=== PATIENT | female | born 1955 | race Caucasian/White ===

== ENCOUNTER 2020-10-21 11:58 | Outpatient (REF) | payer MEDICAID, SELFPAY | END 2020-10-21 11:59 | disposition home or self-care (01) | LOC: HO.LAB 11:58 | PROVIDERS: Visit Provider Internal Medicine | DX: Z20.822 Contact with and (suspected) exposure to COVID-19 (principal) | CPT/HCPCS: 36415; C9803; U0003 ==

== ENCOUNTER 2021-02-16 12:17 | Outpatient (REF) | payer MEDICAID, SELFPAY | END 2021-02-16 12:18 | disposition home or self-care (01) | LOC: HO.LAB 12:17 | PROVIDERS: Visit Provider Internal Medicine | DX: Z20.822 Contact with and (suspected) exposure to COVID-19 (principal) | CPT/HCPCS: C9803; U0003; U0005 ==

== ENCOUNTER → 2022-01-23 20:41 | Outpatient (REF) | payer MEDICARE, MEDICAID, SELFPAY | LOC: HO.SL 20:41 | PROVIDERS: Visit Provider Internal Medicine | DX: G47.33 Obstructive sleep apnea (adult) (pediatric) (principal) | CPT/HCPCS: 95810 ==

== ENCOUNTER 2022-04-06 13:20 | Outpatient (REF) | payer MEDICARE, MEDICAID, SELFPAY ==
--- NOTE | ~2022-04-06 | MM_ITS ---
EXAMINATION: BONE DENSITOMETRY CLINICAL INDICATION: Osteoporosis. COMPARISON: Baseline BD dated 10/02/2019. TECHNIQUE: Using a [employer] DXA System (software version: 13.1) manufactured by [employer], dual-energy x-ray absorptiometry was performed of the lumbar spine and left hip. The images are of good technical quality. Summary results are attached. FINDINGS: AP SPINE L1-L4: Current: BMD 1.056 g/cm2, Z-score -0.5, T-score -1.0, normal, 8.8% decrease from baseline (<5% change is not significant). Baseline: BMD 0.971 g/cm2. LEFT FEMUR, NECK: Current: BMD 0.708 g/cm2, Z-score -1.6, T-score -2.4, osteopenia. Baseline: BMD 0.679 g/cm2. LEFT FEMUR, TOTAL: Current: BMD 0.809 g/cm2, Z-score -1.1, T-score -1.6, osteopenia, 2.4% decrease from baseline (<5% change is not significant). Baseline: BMD 0.829 g/cm2. IDENTIFIED RISK FACTORS: Menopause, low calcium intake, osteoporosis, history of fracture (adult), rheumatoid arthritis. HISTORY OF FRACTURE: Humerus, spine. MEDICATIONS: Calcium, vitamin D. MM/XR DEXA axial skeleton IMPRESSION: 1. DIAGNOSIS: Osteopenia based on the lowest T-score value of -2.4 in the femoral neck applying World Health Organization criteria. 2. 10-YEAR FRACTURE RISK PREDICTION, FRAX: Major osteoporotic fracture (clinical spine, forearm, hip or shoulder) 13.5%. Hip fracture 2.7%. 3. Treatment Recommendations: NOF guidelines recommend consideration for treatment in postmenopausal women and men age 50 and older presenting with the following: -A hip or vertebral (clinical or morphometric) fracture. -T-score less than or equal to -2.5 at the femoral neck or spine after appropriate evaluation to exclude secondary causes. -Low bone mass at the hip or spine and a 10-year fracture probability by FRAX of greater than or equal to 3% for hip fracture or greater than or equal to 20% for major osteoporotic fracture based on the [place] adapted WHO algorithm. 4. Other Recommendations: All treatment decisions require clinical judgment and consideration of individual patient factors, including patient preferences, comorbidities, previous drug use, risk factors not captured in the FRAX model (e.g. frailty, falls, vitamin D deficiency, increased bone turnover, interval significant decline in bone density) and possible under or overestimation of fracture risk by FRAX. Additional medical evaluation for secondary cause of low bone mineral density may be appropriate. FUTURE SCAN RECOMMENDATION: People with diagnosed cases of osteoporosis or at high risk for fracture should have regular bone mineral density tests. For patients eligible for Medicare, routine testing is allowed once every 2 years. The testing frequency can be increased to one year for patients who have rapidly progressing disease, those who are receiving or discontinuing medical therapy to restore bone mass, or have additional risk factors.
== END 2022-04-06 13:21 | disposition home or self-care (01) ==
LOC: HO.MAMMO 13:20
PROVIDERS: Visit Provider Internal Medicine
DX: Z13.820 Encounter for screening for osteoporosis (principal); Z78.0 Asymptomatic menopausal state; M81.0 Age-related osteoporosis without current pathological fracture
CPT/HCPCS: 77080

== ENCOUNTER → 2022-10-02 12:55 | Outpatient (BNVA) | payer MEDICARE, MEDICAID, SELFPAY | PROVIDERS: PCP Internal Medicine; Visit Provider Surgery | DX: Z12.11 Encounter for screening for malignant neoplasm of colon (principal) | CPT/HCPCS: 99202 ==

== ENCOUNTER 2022-11-10 06:50 | Day surgery (SDC) | payer MEDICARE, MEDICAID, SELFPAY ==
[2022-11-06 16:47] VITALS: BMI 40.1
[2022-11-10 07:15] VITALS: BP 151/86; PULSE 84; RESP 16; TEMP 36.3; O2SAT 97; BMI 39.9
--- NOTE | 2022-11-10 08:25 | MHC.SHP ---
Pre-Procedural Eval Section A Date of Service: 11/10/22 Section B Chief Complaint: Encounter for screening for malignant neoplasm of Details of Present Illness: for screening colonoscopy Relevant Social History: None Present Medications: None Allergies: Allergies Allergy/AdvReac Type Severity Reaction Status Date / Time ibuprofen Allergy Unknown Rash Verified 11/10/22 07:30 naproxen Allergy Unknown Rash Verified 11/10/22 07:30 penicillin G [Penicillin G] Allergy Unknown ITCHY,SWELL Verified 11/10/22 07:30 ING penicillin V Allergy Unknown Anaphylaxis Verified 11/10/22 07:30 Review of Systems Sugical H&P ROS: Negative: Constitution, Cardiovascular, Respiratory, Neurological, Psychiatric, Hem-Onc, Allergic/Immunologic, Gastrointestinal, Genitourinary, Musculoskeletal, Integumentary, Endocrine and Eyes/Ears/Nose/Throat Exam Surgical H&P Exam: Normal: HEENT, Normal: Heart, Normal: Lungs, Normal: Extremities, Normal: Abdomen, Normal: Skin and Normal: Neurological Plan Diagnosis/Plan: Unchanged I have reviewed the history and physical and performed a pertinent physical examination on my patient. No changes have occurred unless specified. Time Spent With Patient Time: Total time managing care of this patient today ____ minutes.
--- NOTE | 2022-11-10 08:29 | HO.ANESPROP2 ---
HPI - Anesthesia Eval Consult details Narrative: colon cancer screen PMFSH Active Problems Active Problems: All Active Problems (Updated 10/02/22 @ 13:21 by Alban Greene MD) Morbid obesity (Acute) Arthritis (Acute) Fibromyalgia (Acute) Colon cancer screening (Acute) Past Medical History Medical History (Updated 10/02/22 @ 13:21 by Alban Greene MD) Arthritis Colon cancer screening Fibromyalgia Morbid obesity Family History Family History Mother Arthritis Family history of problems with anesthesia: No Surgical History History of Problems with Anesthesia: No Social History Social History Alcohol intake: never Patient Tobacco Use Status: Never used Tobacco Use of substances other than those prescribed or required for medical reasons: No Advance Directives: No Advance Directives Information Provided: Yes Recently lost weight without trying: No Meds Allergies Allergy/AdvReac Type Severity Reaction Status Date / Time ibuprofen Allergy Unknown Rash Verified 11/10/22 07:30 naproxen Allergy Unknown Rash Verified 11/10/22 07:30 penicillin G [Penicillin G] Allergy Unknown ITCHY,SWELL Verified 11/10/22 07:30 ING penicillin V Allergy Unknown Anaphylaxis Verified 11/10/22 07:30 Home Medications Medication Instructions Recorded Confirmed Last Taken Type alendronate 70 mg tablet 70 mg PO QWEEK 10/02/22 10/02/22 Unknown History atorvastatin 40 mg tablet 40 mg PO BEDTIME 10/02/22 10/02/22 Unknown History brimonidine 0.2 % eye drops 1 drp ophthalmic-Right TID 10/02/22 10/02/22 Unknown History calcium carbonate 500 mg-vitamin 1 tab PO BID 10/02/22 10/02/22 Unknown History D3 5 mcg (200 unit) tablet (Oyster Shell Calcium-Vitamin D3) cetirizine 10 mg tablet 10 mg PO DAILY 10/02/22 10/02/22 Unknown History estradiol 0.01% (0.1 mg/gram) 1 g vaginal 2XW 10/02/22 10/02/22 Unknown History vaginal cream fluticasone propionate 50 1 - 2 spray intranasal DAILY PRN 10/02/22 10/02/22 Unknown History mcg/actuation nasal spray,suspension gabapentin 300 mg capsule mg PO 10/02/22 10/02/22 Unknown History hydrochlorothiazide 25 mg tablet 25 mg PO DAILY 10/02/22 10/02/22 Unknown History lisinopril 30 mg tablet 30 mg PO DAILY 10/02/22 10/02/22 Unknown History venlafaxine 150 mg 150 mg PO DAILY 10/02/22 10/02/22 Unknown History capsule,extended release 24 hr Exam Exam Date and Time: November 10, 2022 0829 Height,Weight and Vital Signs: Height 5 ft 2 in Weight 98.883 kg Last Vital Signs Temp 97.3 F 11/10/22 07:15 Pulse 84 11/10/22 07:15 Resp 16 11/10/22 07:15 BP 151/86 H 11/10/22 07:15 Pulse Ox 97 11/10/22 07:15 O2 Del Method 11/10/22 07:15 Airway Mallampati Class: II TM Dist: >3cm Neck ROM: Full Heart: rrr Lungs: cta Assessment and Plan Assessment Anesthesia Assessment: Anesthesia Plan Discussed and Chart Reviewed Final Anesthetic Review Family History of Problems with Anesthesia: No History of Problems with Anesthesia: No NPO: Yes ASA Class: III Final Preanesthetic Review: No Changes in Pt Med Stat, Meds/Allgs Chart Reviewed, Consent Obtained/Reviewed and Anes Risks/Benef Reviewed Patient Risk: Intermediate Procedure Risk: Low Anesthetic Plan Anesthetic Plan: MAC: Disposition: Standard PACU
--- NOTE | 2022-11-10 09:25 | W.PM.OPN ---
Operative Note Operative Note Date of Service: 11/10/22 Narrative: Preop diagnosis: Colon cancer screening Postop diagnose: 1. Small polyps x2, about 2 to 3 mm, level 10 cm 2. small polyp about 2 mm, level 5 cm Procedure: Colonoscopy using cold forceps x3 Surgeon: Alban Greene MD The patient is a 67 year female here for screening colonoscopy. She understood the technique of this procedure as well as the risks, benefits, and alternatives. The patient was brought to the operating room and placed in left lateral decubitus position under monitored anesthesia care. A surgical time-out was done. A full digital rectal exam was done and this did not reveal any significant anal lesions. The tip of the Olympus colonoscope was gently introduced through the anal orifice advanced with insufflation all the way to the cecum. The cecum was intubated. The cecum was identified by visualization of the ileocecal valve as well as the appendiceal orifice. The cecal mucosa was unremarkable. The scope was gradually withdrawn with careful examination of the entire colonic mucosa being done with scope withdrawal. The patient had adequate bowel prep so it was unlikely that any lesion may have been missed. The rectum was reached. There was note of 2 small polyps about 2 mm each adjacent to each other at about level 10 cm. This were both removed using multiple bites of the cold forceps and placed in the same specimen jar. Another small polyp, about 2-3 mm was seen at level 5 cm and was removed as well with forceps. The anal canal was unremarkable. The scope was then withdrawn completely with desufflation The patient tolerated procedure well. There were no immediate complications. Depending on the path report, may recommend follow-up colonoscopy in the next 5 years.
[2022-11-10 09:35] VITALS: BP 125/62; PULSE 70; RESP 17; TEMP 36.2; O2SAT 98
[2022-11-10 09:50] VITALS: BP 145/75; PULSE 76; RESP 18; TEMP 36.2; O2SAT 98
== END 2022-11-10 10:10 | disposition home or self-care (01) ==
PROVIDERS: PCP Internal Medicine; Visit Provider Surgery
PROC: 0DJD8ZZ Inspection of Lower Intestinal Tract, Via Natural or Artificial Opening Endoscopic (ICD-10-PCS; CPT 45378; principal; 2022-11-10 09:00)
DX: Z12.11 Encounter for screening for malignant neoplasm of colon (principal); K62.1 Rectal polyp; M79.7 Fibromyalgia; G47.33 Obstructive sleep apnea (adult) (pediatric); E66.01 Morbid (severe) obesity due to excess calories; Z68.41 Body mass index [BMI] 40.0-44.9, adult; Z79.51 Long term (current) use of inhaled steroids; Z79.899 Other long term (current) drug therapy; Z88.0 Allergy status to penicillin; Z88.8 Allergy status to other drugs, medicaments and biological substances
CPT/HCPCS: 45380; 88305; J0171; Q9968

== ENCOUNTER → 2022-11-23 11:50 | Outpatient (BNVA) | payer MEDICARE, MEDICAID, SELFPAY | PROVIDERS: PCP Internal Medicine; Referring Provider Internal Medicine; Visit Provider Surgery | DX: K63.5 Polyp of colon (principal) | CPT/HCPCS: 99212 ==

== ENCOUNTER → 2023-03-20 11:10 | Outpatient (BNVA) | payer OTHER, MEDICAID, SELFPAY | PROVIDERS: PCP Internal Medicine; Visit Provider Internal Medicine Rheumatology | DX: M54.50 Low back pain, unspecified (principal); M25.551 Pain in right hip; M25.552 Pain in left hip; M25.512 Pain in left shoulder; M79.7 Fibromyalgia; M75.82 Other shoulder lesions, left shoulder | CPT/HCPCS: 99202 ==

== ENCOUNTER 2023-04-03 11:07 | Outpatient (REF) | payer OTHER, MEDICAID, SELFPAY ==
--- NOTE | ~2023-04-03 | XR_ITS ---
EXAMINATION: XR SHOULDER, LEFT CLINICAL INFORMATION: Pain in left shoulder COMPARISON: None available. TECHNIQUE: AP external rotation, Grashey, scapular Y, and axillary views of the left shoulder. FINDINGS: No displaced fracture. There are mild to moderate degenerative changes in the glenohumeral joint and acromioclavicular joints with joint space narrowing and bony spurring present question of subtle calcification overlying the greater tuberosity. XR/XR shoulder LT min 2V IMPRESSION: 1. Mild to moderate degenerative changes in the glenohumeral and acromioclavicular joints. 2. Question of subtle calcification overlying the greater tuberosity which could represent calcific tendinosis.
--- NOTE | ~2023-04-03 | XR_ITS ---
EXAMINATION: XR LUMBOSACRAL SPINE CLINICAL INFORMATION: Low back pain COMPARISON: 11/07/2016 TECHNIQUE: Three views of the lumbosacral spine. FINDINGS: No evidence for acute compression deformity. Moderate to severe degenerative disc disease at L5-S1. There is grade 1 anterolisthesis of L4 on L5 with moderate degenerative disc disease at this level. Moderate facet arthropathy in the lower lumbar spine. The sacroiliac joints are intact. Atherosclerotic calcification in the abdominal aorta. Calcified granulomas project over the gluteal regions. XR/XR lumbar spine 2-3V IMPRESSION: 1. Moderate to severe degenerative disc disease at L5-S1. 2. Grade 1 anterolisthesis of L4 on L5 with moderate degenerative disc disease at this level.
== END 2023-04-03 11:08 | disposition home or self-care (01) ==
LOC: HO.XRAY 11:07
PROVIDERS: PCP Internal Medicine; Visit Provider Internal Medicine Rheumatology
DX: M54.50 Low back pain, unspecified (principal); M25.552 Pain in left hip; M25.551 Pain in right hip; M25.512 Pain in left shoulder
CPT/HCPCS: 72100; 73030

== ENCOUNTER 2023-11-08 12:10 | Outpatient (REF) | payer OTHER, MEDICAID, SELFPAY ==
[2023-11-08 13:10] LABS: MANUAL DIFF FLAG NO
[2023-11-08 13:29] LABS: Basophils Percent Auto 0.3 % (0-2); Eosinophils Absolute Auto 0.2 X10*3/uL (0.0-0.4); Eosinophils Percent Auto 2.1 % (0-4); Estimated Average Glucose 111 mg/dL; Hematocrit 37.2 % (37.0-47.0); Hemoglobin 12.7 g/dl (12.0-16.0); Hemoglobin A1c % 5.5 % (<6.0); Imm Gran Abs Auto 0.03 X10*3/uL (0.00-0.03); Imm Gran Pct Auto 0.3 % (0.0-0.4); Lymphocytes Absolute Auto 3.5 X10*3/uL (1.2-4.9); Lymphocytes Percent Auto 34.4 % (20-40); Mean Corpuscular HGB Conc 34.1 g/dl (31.0-35.0); Mean Corpuscular Hemoglobin 30.6 pg (27.0-33.0); Mean Corpuscular Volume 89.6 fL (80.0-98.0); Mean Platelet Volume 9.5 fL (9.4-12.3); Neutrophils Absolute Auto 5.4 x10*3/uL (2.0-8.3); Neutrophils Percent Auto 52.9 % (45-73); Platelet Count 455 X10*3/uL (160-400); Red Blood Count 4.15 X10*6/uL (4.20-5.50); Red Cell Distribution Width 13.2 % (11.0-16.0); White Blood Count 10.2 X10*3/uL (4.8-10.8)
[2023-11-08 13:46] LABS: Alanine Aminotransferase 12 U/L (0-31); Alkaline Phosphatase 66 U/L (39-117); Anion Gap 11 (12-20); Aspartate Amino Transferase 15 U/L (5-31); Bilirubin Total 0.4 mg/dL (0.0-1.0); Blood Urea Nitrogen 14 mg/dL (9-16); Carbon Dioxide 31 mmol/L (22-29); Chloride 102 mmol/L (96-108); Estimated Glomerular Filt Rate > 60; Glucose Random 95 mg/dL (60-115); Potassium 3.8 mmol/L (3.3-5.1); Sodium 140 mmol/L (135-145); Total Protein 7.6 g/dL (6.5-8.0)
[2023-11-08 14:08] LABS: TSH reflex Free T4 0.98 uIU/mL (0.32-4.0)
[2023-11-09 10:36] LABS: Iron 102 mcg/dL (30-160); Percent Iron Saturation 44 % (15-50); Total Iron Binding Capacity 232 mcg/dL (228-428); Unsaturated Iron Binding 130 ug/dL
[2023-11-09 11:25] LABS: Ferritin 182 ng/mL (10-250)
== END 2023-11-08 12:11 | disposition home or self-care (01) ==
LOC: HO.HHCL 12:10
PROVIDERS: Visit Provider Student in an Organized Health Care Education/Training Program
DX: Z00.00 Encounter for general adult medical examination without abnormal findings (principal); R53.1 Weakness
CPT/HCPCS: 36415; 80053; 82728; 83036; 83540; 84443; 85025

== ENCOUNTER 2024-03-03 10:14 | Outpatient (REF) | payer OTHER, MEDICAID, SELFPAY ==
[2024-03-03 12:25] LABS: Alanine Aminotransferase 13 U/L (0-31); Albumin Level 4.1 g/dL (3.5-5.0); Alkaline Phosphatase 55 U/L (39-117); Anion Gap 18 (12-20); Aspartate Amino Transferase 19 U/L (5-31); Bilirubin Total 0.3 mg/dL (0.0-1.0); Blood Urea Nitrogen 14 mg/dL (9-16); Carbon Dioxide 27 mmol/L (22-29); Chloride 99 mmol/L (96-108); Cholesterol 281 mg/dL (<200); Estimated Glomerular Filt Rate > 60; Glucose Random 106 mg/dL (60-115); HDL Cholesterol 51 mg/dL (>40); LDL Cholesterol Calculated 180 mg/dL (<100); Sodium 140 mmol/L (135-145); Total Protein 7.5 g/dL (6.5-8.0); Triglycerides 252 mg/dL (<150)
[2024-03-03 12:27] LABS: Vitamin D 25-OH Total 29.9 ng/mL (>30)
[2024-03-03 13:48] LABS: Reflex LDLD? No
== END 2024-03-03 10:15 | disposition home or self-care (01) ==
LOC: HO.HHCL 10:14
PROVIDERS: Visit Provider Internal Medicine
DX: I10 Essential (primary) hypertension (principal); M54.50 Low back pain, unspecified; G89.29 Other chronic pain; F33.9 Major depressive disorder, recurrent, unspecified
CPT/HCPCS: 36415; 80053; 80061; 82306; 84443

== ENCOUNTER → 2024-12-09 11:30 | Outpatient (BNV) | payer OTHER, SELFPAY | PROVIDERS: PCP Internal Medicine; Visit Provider Radiology Diagnostic Radiology | DX: E28.39 Other primary ovarian failure (principal) | CPT/HCPCS: 77080 ==

== ENCOUNTER 2024-12-09 11:32 | Outpatient (REF) | payer OTHER, SELFPAY ==
--- NOTE | ~2024-12-09 | MM_ITS ---
EXAMINATION: DXA BONE DENSITY AXIAL HISTORY: Estrogen deficiency TECHNIQUE: AtheroNova Dual energy absorptiometry (DEXA) of the lumbar spine, total left hip, and femoral neck was performed. COMPARISON: Comparison is made with the prior examination dated 04/06/2022. FINDINGS: The bone mineral density of the lumbar spine is 1.070 with a T-score of -0.9, and a Z-score of -0.4. This represents a BMD change of 1.3% compared to the prior exam. This is not statistically significant. The bone mineral density of the left total hip is 0.901 with a T-score of -0.8, and a Z-score of -0.3. This represents a BMD change of 11.4% compared to the prior exam. This is statistically significant. The bone mineral density of the left femoral neck is 0.835 with a T-score of -1.5, and a Z-score of -0.6. This represents a BMD change of 17.9% compared to the prior exam. FRACTURE RISK: The FRAX index suggests a ten year probability of major osteoporotic fracture of 10.0%, and of hip fracture 1.2%. MM/XR DEXA axial skeleton IMPRESSION: Based on bone mineral density, and according to World Health Organization (WHO) criteria, the diagnosis is consistent with osteopenia. All bone density values are in grams per centimeter squared (g/cm2). Statistically, 68% of repeat scans fall within 1 SD (+/- 0.010 g/cm2 for AP spine L1-L4) and 1 SD (+/- 0.012 g/cm2 for femur total) FRAX is a trademark of the [employer] [place] for Metabolic Bone Disease, a World Health Organization (WHO) Collaborating Center. Electronically signed by: Omari Barrow MD 12/09/2024 01:08 PM EDT
--- OUTSIDE RECORDS SUMMARY | 2024-12-09 14:05 | XMS_ITS | Encounter Summary ---
Author Organization [employer] Address [address] [place] [address] Care Team Providers Care Windows Software Developer Name Role Phone Gail Garcia MD Primary Care Provider + Reason for Visit * Reason Comments Med Refill Encounter Details Date Type Department Care Team ([facility] st Contact Info) Description 05/22/2024 Refill [facility] [address] [place], [place] [phone] Name, MD Ramirez [address] [place] [address] Age related osteoporosis, unspecified pathological fracture presence Social History Tobacco Use Types Packs/Day Years Used Date Smoking Tobacco: Former Cigarettes Passive Smoke Exposure: Past Smokeless Tobacco: Never Alcohol Use Standard Drinks/Week Comments Never 0 (1 standard drink = 0.6 oz pur e alcohol) Depression Answer Date Recorded Patient Health Questionnaire-9 Score 9 12/17/2023 Patient Health Questionnaire-9 Score 9 12/17/2023 Last PHQ-9: Questionnaire Data Not on file 0 12/17/2023 Housing Stability Answer Date Recorded What is your housing situation today? I have chato carter 02/27/[address] you li ve. Do you have problems with any of the following? None of the above 02/27/2024 Food Insecurity Answer Date Recorded Within the past 12 months, y ou worried that your food would run out before you got money to buy more: Never True 02/27/2024 Within the past 12 months,th e food you bought just didn't last and you didn't have enough money to get more: Never True 01/2024 Transportation Answer Date Recorded In the past 12 months, has l ack of transportation kept you from medical appts, meetings, work or from getting things needed for daily living? No 02/27/2024 Utilities Answer Date Recorded In the past 12 months, has t he electric, gas, oil or water company threatened to shut off services in your home? No 02/27/2024 Depression Answer Date Recorded Patient Health Questionnaire-2 Score 0 12/17/2023 Comments No Sex and Gender Information Value Date Recorded Sex Assigned at Female 07/24/2022 10:17 AM EDT Legal Sex Female 10:17 AM EDT Gender Identity Female 07/24/2022 10:17 AM EDT Sexual Orientation Choose not to disclose 2021 10:17 AM EDT documented as of this encounter Plan of Treatment Upcoming Encounters Date Type Department Care Team (Late st Contact Info) Description 12/26/2024 11:30 AM EDT Office Visit [facility] [address] [place] [address] Gail Garcia MD [address] [place] [address] 03/04/2025 11:00 AM EDT Office Visit [facility] [address] [place], [place] [phone] Marquez, Sara, OD [address] [place] [address] documented as of this encounter Visit Diagnoses Diagnosis Age related osteoporosis, unspecified pathological fracture presence documented in this encounter Additional Health Concerns Assessment Noted Time PHQ-9 Depression Total Score: 9 12/17/19 24 11:13 AM EDT documented as of this encounter Care Teams Windows Software Developer Relationship Specialty Start Date End Date Gail Garcia MD [address] [place] [address] PCP - General Family Medicine 11/03/16 documented as of this encounter
--- OUTSIDE RECORDS SUMMARY | 2024-12-09 14:05 | XMS_ITS | Encounter Summary ---
Author Organization [employer] Address [address] [place] [address] Care Team Providers Care Mop Man Name Role Phone Gail Garcia MD Primary Care Provider + Reason for Visit * Reason Comments Med Refill Encounter Details Date Type Department Care Team ([facility] st Contact Info) Description 04/15/2024 Refill [facility] [address] [place], [place] [phone] Gail Garcia MD [address] [place], [place] [phone] Chronic rhinitis Social History Tobacco Use Types Packs/Day Years [...] Description 12/26/2024 11:30 AM EDT Office Visit [facility] [address] [place] [address] Gail Garcia MD [address] [place] [address] 03/04/2025 11:00 AM EDT Office Visit [facility] [address] [place] [address] Marquez, Sara, OD [address] [place] [address] documented as of this encounter Visit Diagnoses Diagnosis Chronic rhinitis documented in this encounter Additional Health Concerns Assessment Noted Time PHQ-9 Depression Total Score: 9 12/17/19 24 11:13 AM EDT documented as of this encounter Care Teams Mop Man Relationship Specialty Start Date End Date Gail Garcia MD [address] [place] [address] PCP - General Family Medicine 11/03/16 documented as of this encounter
--- OUTSIDE RECORDS SUMMARY | 2024-12-09 14:05 | XMS_ITS | Encounter Summary ---
Author Organization [employer] Address [address] [place] [address] Care Team Providers Care Crop Farmers Name Role Phone Gail Garcia MD Primary Care Provider + Encounter Details Date Type Department Care Team (Late st Contact Info) Description 11/02/2022 Orders Only [facility] [address] [place] [address] Alexa Cazares LPN Social History Tobacco Use Types Packs/Day Years Used Date Smoking Tobacco: Never Assessed Comments Unknown Sex and Gender Information Value Date Recorded [...] Description 12/26/2024 11:30 AM EDT Office Visit [facility] [address] [place] [address] Gail Garcia MD [address] [place] [address] 03/04/2025 11:00 AM EDT Office Visit [facility] [address] [place], [place] [phone] Sara Zayas, OD [address] [place] [address] documented as of this encounter Visit Diagnoses Not on filedocumented in this encounter Care Teams Crop Farmers Relationship Specialty Start Date End Date Gail Garcia MD [address] [place] [phone] PCP - General Family Medicine 11/03/16 documented as of this encounter
--- OUTSIDE RECORDS SUMMARY | 2024-12-09 14:05 | XMS_ITS | Data Portability ---
Author Organization [employer] Address [address] [place] [id number] Assessment No assessment recorded. Plan of Treatment Reminders Order Date Submit Date Provider Last Modified By Organization Details Last Modified Time Details Appointments None record ed. Lab None record ed. Referral None record ed. Procedures None record ed. Surgeries None record ed. Imaging None record ed. Medication Orders None record ed. Patient TargetsNo targets recorded. Patient InstructionsNo instructions recorded. Reason for Referral None Reported. Medical Equipment None Reported. Allergies Allergen ID Allergen Name Allergen Category Reaction Reaction Severity Criticality Documentation Date Start Date Code Code System Note Provider Name and Address Organization Details Recorded Time 53786 aspirin medicatio n Not available Not available Not available 09/18/2024 1191 RxNorm Not Available [facility] - production 14:05:30 56459 Product containin g penicilli n (product) medicatio n Not available Not available Not available 09/18/2024 94840 8001 SNOMED Not Available [facility] - production 14:05:30 Medications Name Sig Start Date Stop Date Status Note LastModified by Organization Details LastModified Time cyclobenzapr ine 10 mg tablet TOME 1 TABLETA POR V A ORAL TODOS LOS D AL ACOSTARSE active Not Available Not Available No t Available atorvastatin 40 mg tablet TOME MONA TABLETA TODOS LOS D AL ACOSTARSE active Not Available Not Available No t Available cetirizine 10 mg tablet TOME MONA TABLETA TODOS LOS D active Not Available Not Available No t Available alendronate 70 mg tablet TAKE 1 TABLET BY ORAL ROUTE EVERY WEEK IN THE MORNING 30 MIN BEFORE FOOD OR DRINK active Not Available Not Available No t Available clindamycin HCl 150 mg capsule TAKE 1 CAPSULE BY MOUTH 4 TIMES DAILY FOR 10 DAYS active Not Available Not Available Not Available venlafaxine ER 150 mg capsule,exte nded release 24 hr TOME 1 C PSULA POR V A ORAL TODOS LOS D EN LA MA SHARI DO NOT CRUSH OR CHEW active Not Available Not Available No t Available tramadol 50 mg tablet TOME 1 TABLETA POR V A ORAL CADA 8 HORAS CU[place]O SEA NECESARIO FOR SEVERE PAIN FOR UP TO 5 DAYS active Not Available Not Available No t Available acetaminophe n 500 mg tablet TOME 1 TABLETA POR V A ORAL CADA 6 HORAS CU[place]O SEA NECESARIO PARA EL DOLOR active Not Available Not Available No t Available pravastatin 80 mg tablet TOME 1 TABLETA POR V A ORAL TODOS LOS D active Not Available Not Available No t Available doxycycline monohydrate 50 mg tablet PLEASE SEE ATTACHED FOR DETAILED DIRECTIONS active Not Available Not Available N ot Available betamethason e valerate 0.1 % topical cream APPLY A THIN LAYER TOPICALLY TO THE AFFECTED AREA(S) DAILY active Not Available Not Available No t Available lisinopril 30 mg tablet TOME 1 TABLETA POR V A ORAL TODOS LOS D active Not Available Not Available No t Available gabapentin 300 mg capsule TOME 2 C PSULAS POR V A ORAL TODOS LOS D active Not Available Not Available No t Available hydrochlorot hiazide 25 mg tablet TOME 1 TABLETA POR V A ORAL TODOS LOS D active Not Available Not Available No t Available ergocalcifer ol (vitamin D2) 1,250 mcg (50,000 unit) capsule TOME 1 C PSULA POR V A ORAL ONE TIME PER WEEK active Not Available Not Available No t Available Oyster Shell Calcium-Tonie min D3 500 mg-5 mcg (200 unit) tablet TOME 1 TABLETA POR V A ORAL DOS VECES AL D A active Not Available Not Available No t Available chlorhexidin e gluconate 0.12 % mouthwash PLEASE SEE ATTACHED FOR DETAILED DIRECTIONS active Not Available Not Available N ot Available diclofenac 1 % topical gel APPLY 2 GRAMS TOPICALLY THREE TIMES A DAY TO THE AFFECTED AREA(S) active Not Available Not Available No t Available Vitals Date Recorded Body weight Heart rate Respiratory rate Oxygen saturation Oxygen saturation in Arterial blood by Pulse oximetry Body temperature Systolic blood pressure Diastolic blood pressure Provider Name and Address Organization Details Last Updated DateTime 4 27871.4 g 94 /min 16 /min 96 % 96 % 98.2 [degF] 152 mm[Hg] 80 mm[Hg] Not Available [facility] - production 10:17:22 Social History None recorded. Functional Status None recorded. Mental Status None recorded. Family History Nothing Reported. Medical History No medical history recorded. Gynecological HistoryNo gynecological history recorded. Obstetrics History GPAL:G 0 P 0 0 0 0 Past Encounters Encounter ID Performer Location Encounter Start Date Encounter Closed Date Diagnosis/Indication Diagnosis SNOMED-CT Code Diagnosis ICD10 Code Diagnosis Note [id number] Izzy Garcia MD [facility] - [facility] [address] [place] [phone] 09/19/2024 10:17:19 09/19/2024 12:38:58 Upper respiratory infection 22605723 J06.9 Evaluation in the field was performed by my management information systems director colleague, as noted above, I provided real-time direction and supervisio n for this visit. 69yo F endorsing 2 week of nasal congestion , cough. Denies fevers, myalgias, malaise, chest pain, other new symptoms. On management information systems director eval VS wnl (afebrile) , lungs CTA b/l. Suspect recurrent viral URI, defer COVID and flu testing given lack of fever or systemic sx. Recommend OTC mgmt, PCP f/up prn. PCP: no need for follow up We discussed the diagnostic uncertaint y of home visits and the risk associated with this. In this case, the patient and I felt this to be an acceptable and reasonable amount of risk given the benefit of avoiding an ED visit. We discussed the need to seek care urgently/e mergently in the setting of any new or worsening serious symptoms, shortness of breath, cough, chest pain, fever. Health Concerns Section Related Observation LastModified by Organization Detai ls LastModified Time None Recorded Concern Status LastModified by Organization Details LastModified Time None Recorded Advance Directives Directive None Recorded Payers Encounter Date Sequence Insurance Name Policy Number Policy Eastman Covered Member ID Eastman Member ID Guarantor Name 09/19/2024 1 [facility] - DOS ON OR AFTER 2022 - DUAL ELIGIBLE - [employer]DC OPTIONS AND ONE CARE (MEDICARE REPLACEMENT/ADV ANTAGE - HMO) Judie Aguiar [id number] Judie Aguiar Notes Date Note Type Note Provider Name and Address Organization Details Recorded Time 09/19/2024 text/html HPI: Cough and congestion x 1 week no noted improvement. .................. .................. .................. .................. .................. .................. .................. ............... [facility] Nurse Triage Notes (Ruth Tubbs - RN): Chief Complaints: Common cold symptoms, Cough PMH: Hypertension, Fibromyalgia Comments: Other Allergies: NSAIDSHPI reviewed- NE .................. .................. .................. .................. .................. .................. .................. ............... 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 Pt sts she has had the cough for 2-3 weeks. Pt denies NC, Sore throat, runny nose, fever, NVD, headaches dizziness,SOB, CP or abdominal pain. Pt taking OTC cough syrup with relief. Baseline vitals assessed, WNL, Lungs clear bilaterally, Afebrile, good skin color and turgor. [facility] contacted and advised pt to continue with self care and OTC meds for cough. Pt advised if symptoms persist to contact PCP for X-rays. Pt education on signs indicating the ER. .................. .................. .................. .................. .................. .................. .................. ............... [facility] Consulted: Izzy Garcia .................. .................. .................. .................. .................. .................. .................. ............... Disposition: Fulfilled Izzy Garcia MD [address] [facility] [facility], [place], [phone], [id number] - SUKH WARD 09/19/2024 10:53:07 OBGyn Episode No OBEpisode recorded.
--- OUTSIDE RECORDS SUMMARY | 2024-12-09 14:05 | XMS_ITS | Encounter Summary ---
Author Organization [employer] Address [address] [facility] 7t [place] [address] Care Team Providers Care Marketing Information Manager Name Role Phone Gail Garcia MD Primary Care Provider + Reason for Visit * Reason Comments Med Refill Encounter Details Date Type Department Care Team (Late st Contact Info) Description 06/01/2023 Refill [facility] [address] [place] [address] [phone] Gail aGrcia MD [address] [place], [place] [phone] Major depression, recurrent, chronic (CMS/HCC) Social History Tobacco Use Types Packs/Day Years Used Date Smoking Tobacco: Former Cigarettes Passive Smoke Exposure: Past Smokeless Tobacco: Never Alcohol Use Standard Drinks/Week Comments Never 0 (1 standard drink = 0.6 oz pur e alcohol) PHQ-2 Answer Date Recorded Patient Health Questionnaire-2 Score 0 03/08/2023 Comments Unknown Sex and Gender Information Value [...] Description 12/26/2024 11:30 AM EDT Office Visit [facility] [address] [place] [address] [phone] Gail Garcia MD [address] [place], [place] [phone] 03/04/2025 11:00 AM EDT Office Visit [facility] [address] [place], [place] [phone] Sara Zayas, OD [address] [place] [address] documented as of this encounter Visit Diagnoses Diagnosis Major depression, recurrent, chronic (CMS/HCC) documented in this encounter Care Teams Marketing Information Manager Relationship Specialty Start Date End Date Gail Garcia MD [address] [place] [address] PCP - General Family Medicine 11/03/16 documented as of this encounter
--- OUTSIDE RECORDS SUMMARY | 2024-12-09 14:05 | XMS_ITS | Encounter Summary ---
Author Organization [employer] Address [address] [facility] 7t [place] [address] Care Team Providers Care Alley Worker Name Role Phone Gail Garcia MD Primary Care Provider + Reason for Visit * Reason Comments Med Refill Encounter Details Date Type Department Care Team (Late st Contact Info) Description 05/22/2023 Refill [facility] MED[facility] [address] [place] [address] [phone] Gail Garcia MD [address] [place], [place] [phone] Mixed hyperlipidemia; HTN (hypertension), benign Social History Tobacco Use Types Packs/Day Years [...] Description 12/26/2024 11:30 AM EDT Office Visit [facility] MEDICINE [address] [place] [address] [phone] Gail Garcia MD [address] [place], [place] [phone] 03/04/2025 11:00 AM EDT Office Visit [facility] OPTOMETRY [address] [place], [place] [phone] Sara Zayas, [address] [place], [place] [phone] documented as of this encounter Visit Diagnoses Diagnosis Mixed hyperlipidemia HTN (hypertension), benign Essential hypertension, benign documented in this encounter Care Teams Alley Worker Relationship Specialty Start Date End Date Gail Garcia MD [address] [place], [place] [phone] PCP - General Family Medicine 11/03/16 documented as of this encounter
--- OUTSIDE RECORDS SUMMARY | 2024-12-09 14:05 | XMS_ITS | Encounter Summary ---
Author Organization [employer] Address [address] [facility] 7t [place] [address] Care Team Providers Care Composition Board Press Operator Name Role Phone Gail Garcia MD Primary Care Provider + Encounter Details Date Type Department Care Team (Latest Contact Info) Description 10/01/2018 Abstract [facility] CONVERSIONS Dental, Provider, DDS Social History Tobacco Use Types Packs/Day Years [...] Description 12/26/2024 11:30 AM EDT Office Visit [facility] [address] [place] [address] Gail Garcia MD [address] [place] [address] 03/04/2025 11:00 AM EDT Office Visit [facility] OPTOMETRY [address] [place] [address] Sara Zayas OD [address] [place] [address] documented as of this encounter Visit Diagnoses Not on filedocumented in this encounter Care Teams Composition Board Press Operator Relationship Specialty Start Date End Date Gail Garcia MD [address] [place] [address] PCP - General Family Medicine 11/03/16 documented as of this encounter
--- OUTSIDE RECORDS SUMMARY | 2024-12-09 14:05 | XMS_ITS | Encounter Summary ---
Author Organization [employer] Address [address] [facility] 7t [place] [address] Care Team Providers Care Director Dermatology Name Role Phone Gail Garcia MD Primary Care Provider + Encounter Details Date Type Department Care Team (Late Contact Info) Description 03/13/2023 Abstract [facility] MED[facility] [address] [place] [address] [phone] Gail Garcia MD [address] [place], [place] [phone] Social History Tobacco Use Types Packs/Day Years [...] not to disclose 2021 10:17 AM EDT COVID-19 Exposure Response Date Recorded In the last 10 days, have yo u been in contact with someone who was confirmed or suspected to have Coronavirus/COVID-19? No / Unsure 03/08/2023 9:58 AM EDT documented as of this encounter Plan of Treatment Upcoming Encounters Date Type Department Care Team ([facility] Contact Info) Description 12/26/2024 11:30 AM EDT Office Visit [facility] [address] [place], [place] [phone] Gail Garcia MD [address] [place] [address] 03/04/2025 11:00 AM EDT Office Visit [facility] OPTOMETRY [address] [place], [place] [phone] Sara Zayas, OD [address] [place] [address] documented as of this encounter Procedures Procedure Name Priority Date/Time Associated Diagnosis Comments COLONOSCOPY Routine 11/10/2022 9:16 AM EST documented in this encounter Results * Colonoscopy (11/10/2022 9:16 AM EST) Colonoscopy Normal Normal Narrative Renetta Mora - 11/10/2022 9:16 AM EST Recommended 10 year follow up ( recommended to have another colonoscopy before 75) Historical Provider HEALTH MAINTENANCE Final Result documented in this encounter Visit Diagnoses Not on filedocumented in this encounter Care Teams Director Dermatology Relationship Specialty Start Date End Date Gail Garcia MD [address] [place], [place] [phone] PCP - General Family Medicine 11/03/16 documented as of this encounter
--- OUTSIDE RECORDS SUMMARY | 2024-12-09 14:05 | XMS_ITS | Encounter Summary ---
Author Organization [employer] Address [address] [facility] 7t [place] [address] Care Team Providers Care Investor Relations Analyst Name Role Phone Gail Garcia MD Primary Care Provider + Encounter Details Date Type Department Care Team (Late st Contact Info) Description 11/29/2022 Orders Only [facility] [address] [place], [place] [phone] Dunia Ocampo LPN Social History Tobacco Use Types Packs/Day [...] Description 12/26/2024 11:30 AM EDT Office Visit [facility] MEDICINE [address] [place] [address] Gail Garcia MD [address] [place] [address] 03/04/2025 11:00 AM EDT Office Visit [facility] OPTOMETRY [address] [place] [address] Sara Zayas, OD [address] [place] [address] documented as of this encounter Visit Diagnoses Not on filedocumented in this encounter Care Teams Investor Relations Analyst Relationship Specialty Start Date End Date Gail Garcia MD [address] [place] [address] PCP - General Family Medicine 11/03/16 documented as of this encounter
--- OUTSIDE RECORDS SUMMARY | 2024-12-09 14:05 | XMS_ITS | Encounter Summary ---
Author Organization [employer] Address [address] [facility] [address] [place] [address] Care Team Providers Care Branch Operation Evaluation Manager Name Role Phone Gail Garcia MD Primary Care Provider + Encounter Details Date Type Department Care Team ([facility] st Contact Info) Description 11/09/2023 Telephone [facility] MED[facility] [address] [place], [place] [phone] Gail Garcia MD [address] [place] [address] Social History Tobacco Use Types Packs/Day Years Used Date Smoking Tobacco: Former Cigarettes Passive Smoke Exposure: Past Smokeless Tobacco: Never Alcohol Use Standard Drinks/Week Comments Never 0 (1 standard drink = 0.6 oz pur e alcohol) Depression Answer Date Recorded Patient Health Questionnaire-9 Score 0 07/05/2023 Housing Stability Answer Date Recorded What is your housing situation today? I have cahto carter 07/18/[address] you li ve. Do you have problems with any of the following? None of the above 07/18/2023 Food Insecurity Answer Date Recorded Within the past 12 months, y ou worried that your food would run out before you got money to buy more: Never True 07/18/2023 Within the past 12 months,th e food you bought just didn't last and you didn't have enough money to get more: Never True Transportation Answer Date Recorded In the past 12 months, has l ack of transportation kept you from medical appts, meetings, work or from getting things needed for daily living? No 07/18/2023 Utilities Answer Date Recorded In the past 12 months, has t he electric, gas, oil or water company threatened to shut off services in your home? No 07/18/2023 Depression Answer Date Recorded Patient Health Questionnaire-2 Score 0 07/05/2023 Comments Unknown Sex and Gender Information Value [...] Description 12/26/2024 11:30 AM EDT Office Visit [facility] MEDICINE [address] [place] [address] Gial Garcia MD [address] [place] [address] 03/04/2025 11:00 AM EDT Office Visit [facility] OPTOMETRY [address] [place] [address] Marquez, Sara, OD 230 [place] [address] documented as of this encounter Visit Diagnoses Not on filedocumented in this encounter Additional Health Concerns Assessment Noted Time PHQ-9 Depression Total Score: 0 07/05/20 23 11:19 AM EDT documented as of this encounter Care Teams Branch Operation Evaluation Manager Relationship Specialty Start Date End Date Gail Garcia MD [address] [place] [address] PCP - General Family Medicine 11/03/16 documented as of this encounter
--- OUTSIDE RECORDS SUMMARY | 2024-12-09 14:05 | XMS_ITS | Encounter Summary ---
Author Organization [employer] Address [address] [facility] 7t [place] [address] Care Team Providers Care Production Line Name Role Phone Gail Garcia MD Primary Care Provider + Reason for Visit * Reason Comments Med Refill Encounter Details Date Type Department Care Team (Late Contact Info) Description 04/12/2023 Refill [facility] [address] [place], [place] [phone] Gail Garcia MD [address] [place], [place] [phone] Social History Tobacco Use Types Packs/Day Years [...] Encounters Date Type Department Care Team (Late Contact Info) Description 12/26/2024 11:30 AM EDT Office Visit [facility] [address] [place], [place] [phone] Gail Garcia MD [address] [place], [place] [phone] 03/04/2025 11:00 AM EDT Office Visit [facility] OPTOMETRY [address] [place] [address] Sara Zayas OD [address] [place] [address] documented as of this encounter Visit Diagnoses Not on filedocumented in this encounter Care Teams Production Line Relationship Specialty Start Date End Date Gail Garcia MD [address] [place] [address] PCP - General Family Medicine 11/03/16 documented as of this encounter
--- OUTSIDE RECORDS SUMMARY | 2024-12-09 14:05 | XMS_ITS | Encounter Summary ---
Author Organization [employer] Address [address] [facility] [address] [place] [address] Care Team Providers Care Draw Tender Name Role Phone Gail Garcia MD Primary Care Provider + Encounter Details Date Type Department Care Team ([facility] st Contact Info) Description 04/22/2024 Telephone [facility] [address] [place] [address] Bertin Palacios, DDS [address] [place], [place] [phone] Social History Tobacco Use Types Packs/Day Years [...] AM EDT documented as of this encounter Miscellaneous Notes * Telephone Encounter - Mihaela Chong - 04/22/2024 3:54 PM EDT PATIENT IS LOOKING FOR HER GROWN [facility]ES [facility] 25 documented in this encounter Plan of Treatment Upcoming Encounters Date Type Department Care Team (Late st Contact Info) Description 12/26/2024 11:30 AM EDT Office Visit [facility] MEDICINE [address] [place] [address] Gail Garcia MD [address] [place] [address] 03/04/2025 11:00 AM EDT Office Visit [facility] OPTOMETRY [address] [place] [address] Marquez, Sara, OD 230 [place] [address] documented as of this encounter Visit Diagnoses Not on filedocumented in this encounter Additional Health Concerns Assessment Noted Time PHQ-9 Depression Total Score: 9 12/17/19 24 11:13 AM EDT documented as of this encounter Care Teams Draw Tender Relationship Specialty Start Date End Date Gail Garcia MD [address] [place] [address] PCP - General Family Medicine 11/03/16 documented as of this encounter
--- OUTSIDE RECORDS SUMMARY | 2024-12-09 14:05 | XMS_ITS | Clinical Summary ---
Author Organization [employer] Address [address] [place] [address] Care Team Providers Care Procedure Tech Name Role Phone Gail Garcia MD Primary Care Provider + Allergies Active Allergy Reactions Criticality Noted Date Comments Aspirin 07/17/2018 Other reaction(s): Hives Nsaids 11/07/2016 Penicillins 11/07/2016 Medications estradiol (Estrace) 0.1 MG/GM vaginal cream INSERT (1G) BY VAGINAL ROUTE TWICE A WEEK 2 Active acetaminophen (Tylenol) 500 MG tablet Take 1 tablet (500 mg) by mouth every 6 (six) hours if needed for mild pain for up to 20 doses. 20 tablet 4 Active chlorhexidine (Peridex) 0.12 % solution Swish 15 mL morning and night for 1 minute. Spit, do not swallow. Do not eat or drink for 30 minutes following use. 473 mL 4 Active pravastatin (Pravachol) 80 MG tablet Take 1 tablet (80 mg) by mouth Once per day. 30 tablet 11 4 03/10/20 25 Active cyclobenzaprine (Flexeril) 10 MG tabletIndications :Fibromyalgia TAKE 1 TABLET BY MOUTH AT BEDTIME 30 tablet 4 Active ergocalciferol (Vitamin D2) 1.25 MG (38700 UT) capsule TOME 1 CAPSULA POR VIA ORAL ONE TIME PER WEEK 12 capsule 4 Active venlafaxine XR (Effexor XR) 150 MG 24 hr capsuleIndication s:Major depression, recurrent, chronic (CMS/HCC) TAKE 1 CAPSULE BY MOUTH EVERY MORNING. DO NOT CRUSH OR CHEW 90 capsule 1 10/25/202 4 Active hydroCHLOROthiazi de (HYDRODiuril) 25 MG tablet TAKE 1 TABLET BY MOUTH EVERY DAY 90 tablet 1 4 Active gabapentin (Neurontin) 300 MG capsule TAKE 2 CAPSULES BY MOUTH EVERY DAY 60 capsule 2 4 Active lisinopril 30 MG tabletIndications :HTN (hypertension), benign TAKE 1 TABLET BY MOUTH EVERY DAY 90 tablet 5 Active alendronate (Fosamax) 70 MG tabletIndications :Age related osteoporosis, unspecified pathological fracture presence TAKE 1 TABLET BY ORAL ROUTE EVERY WEEK IN THE MORNING 30 MIN BEFORE FOOD OR DRINK 12 tablet 3 5 Active Calcium Carb-Cholecalcife rol (Oyster Shell Calcium w/D) 500-5 MG-MCG tabletIndications :Age related osteoporosis, unspecified pathological fracture presence Take 1 tablet by mouth 2 times daily. 180 tablet 5 Active cetirizine (ZyrTEC) 10 MG tabletIndications :Arthritis TAKE 1 TABLET BY MOUTH EVERY DAY 90 tablet 1 5 Active Diclofenac Sodium 1 % gelIndications:Ar thritis APPLY 2 GRAMS TOPICALLY THREE TIMES A DAY TO THE AFFECTED AREA(S) 100 g 1 5 Active fluticasone (Flonase) 50 MCG/ACT nasal sprayIndications: Allergic rhinitis, unspecified seasonality, unspecified trigger Administer 1 spray into each nostril Once per day. Shake gently. Before first use, prime pump. After use, clean tip and replace cap. 48 mL 5 Active Active Problems Problem Noted Date Diagnosed Date Pelvic pain 10/27/2024 Assessment & Plan (10/27/2024 4:48 PM EST): Rule out UTI, order UA. Discussed with patient regarding Kegel exercises to prevent urinary incontinence after URI. Gastroesophageal reflux disease 10/27/2024 Assessment & Plan (10/27/2024 4:58 PM EST): Patient thinks it is related to Pravastatin but most likely it is related to Fosamax. Patient will take sucralfate 1 X week, and FU if she continues with symptoms. Adjustment insomnia 10/27/2024 Assessment & Plan (10/27/2024 5:01 PM EST): Mot likely due to uncontrolled HTN vs recent URI. Advised regarding tight controlled HTN. Use Flonase nasal spay for 1 week. Take Gabapentin at bedtime 600 mg as opposed to 300mg BID. FU in 2 months. Edentulous maxilla 02/13/2024 Severe dental caries 01/31/2024 Ill-fitting dentures 01/31/2024 Ankylosis of tooth 01/31/2024 Stomatitis 01/10/2024 Weakness 11/11/2023 Assessment & Plan (11/11/2023 7:18 PM EST): -given reported weakness sensation will do today CBC,TSH ,chem,states symptoms after recent resp infection -alarm signs and symptoms and hydration advised -refused today Flu and covid 19 vaccine -monitor in 6 weeks w PCP Bilateral hand numbness 11/11/2023 Assessment & Plan (12/17/2023 12:30 PM EDT): - Secondary to CTS - Use wrist braces, delivery is still pending - Will continue off Statins for now, and f/u at next visit Assessment & Plan (11/11/2023 7:19 PM EST): Most likely CTS w phanel + and from description and distribution of symptoms -gave today written px for wrist brace and to f w PCP in 6 weeks to monitor, if symptoms not improving will need EMG and possible hand surgeon referral Vasomotor rhinitis 10/18/2023 Assessment & Plan (10/18/2023 9:16 AM EST): Recommended to wear a mask when she's outside especially in the cold weather Recommended to use humidifier at home and make sure it is free of fungus Use nasal saline Encounter for preventive health examination 02/22 Assessment & Plan (10/27/2024 2:48 PM EST): Discussed with patient re increase fresh fruit and vegetable intake. Counseled re moderate exercise as tolerated, up to 20min/d Patient feels safe at home. PAP smear: UTD no additional papsmwear due to age. Mammogram: overdue, she declines to have mammogram screening at this time. Bone density test: order overdue, will order again, patient will call back in 2 weeks if it is not scheduled. 02/2023 ordered last, patient never had it done. Eye exam: UTD, next due this year. Will refer to [facility] eye clinic. CRC screen: UTD, next one due 2032 Lipids/FBS: UTD, will order FU prior to next appointment. Vaccinations: declined influenza and COVID IZ. Dental visit: UTD, next one due in november/2024. Gave her information of dental clinics in the area. Assessment & Plan (05/27/2024 3:42 PM EDT): Discussed with patient re increase fresh fruit and vegetable intake. Counseled re moderate exercise as tolerated, up to 20min/d Patient feels safe at home. PAP smear: UTD, offered to schedule PAP smear, not interested. I told her that given her fairly good medical condition, she could beneficiate from another Pap smear, she's not interested. Mammogram:Overdue, declines further screening. I will fu next year. Bone density test: TBO Eye exam: UTD, next one due on 2024 CRC screen: UTD, next one due n 2032 Lipids/FBS: UTD, next one due on 02/2025 Vaccinations: Advised to get 2nd dose of Zoster Vax, declined. Advised to get Flu/covid vax in the fall. Dental visit: UTD, next one due on 07/2024 Recurrent falls 03/08/2023 Assessment & Plan (03/08/2023 2:26 PM EDT): Due to OA. Walks with cane, use shower chair Completed PT Exercise counseling 03/08/2023 Dietary counseling 03/08/2023 Atopic dermatitis 01/01/2023 Seasonal allergies 01/01/2023 Osteoporosis 01/01/2023 Assessment & Plan (10/27/2024 4:50 PM EST): Continue Fosamax + Ca/VitD Order BMD test, discussed with patient regarding risk of fractures. Assessment & Plan (05/27/2024 3:38 PM EDT): Continue fosamax + Ca/Vit D Order dexa scan Assessment & Plan (03/08/2023 2:23 PM EDT): On fosamax. Continue OTC Ca + D, Vit d levels fairly nl Order fu Dexa scan. Counseled re fall prevention, shower chair rx'd Morbid obesity 01/01/2023 Assessment & Plan (04/30/2024 7:50 PM EDT): Discussed re weight reduction options including exercise, life style modifications, diet. Recommended to decrease soda and sugary beverage consumption, increase protein intake with meals (at least 1 portion of protein with each meal) to assist with satiety, increase dietary fiber Recommended at least 150 min/week of moderate intensity exercise. Assessment & Plan (03/08/2023 2:24 PM EDT): Discussed re weight reduction options including exercise, life style modifications, diet, declined referral to events specialist/bariatric surgery. Discussed re lower calorie intake, increase dietary fiber Osteoarthritis 01/01/2023 Assessment & Plan (03/08/2023 2:20 PM EDT): Several sites. Counseled re healthy diet, regular exercise, use tylenol daily Recommended weight reduction, rx depression Needs assistance on some ADLs specially to lift up objects, counseled to live on a lower floor apartment or elevator access Use shower chair to prevent falls, cane as needed Stress incontinence 01/01/2023 Assessment & Plan (12/17/2023 12:33 PM EDT): - Prescribed urinary pads, will discontinue Pull-Ups Tubular adenoma of colon 01/01/2023 Assessment & Plan (03/08/2023 2:14 PM EDT): Colonoscopy reportedly done on 2022 (Dr Greene), report not available to me today. Obtain report prior to next appt Vitamin D deficiency 01/01/2023 Overview (03/08/2023): Vit d on 12/2022 = normal Assessment & Plan (04/30/2024 7:53 PM EDT): Off vit D supplementation. Its mildly low, start Vit D x 3mo only Advised re outdoor activities, at least 15min/d Chronic low back pain 01/01/2023 Assessment & Plan (12/17/2023 12:29 PM EDT): - secondary to OA, recommended to continue Tylenol BID. Declines referral to physical therapy - recommended weight reduction and to come to acupuncture clinic and continue physical activity Postmenopausal 01/01/2023 Anxiety 04/21/2021 Varicose veins of lower extremity 05/23/2018 Major depression, recurrent, chronic 06/19/2017 Assessment & Plan (12/17/2023 12:36 PM EDT): - Seems to be stable, patient still has problems with sleep - Recommended to go to acupuncture clinic, continue Gabapentin at bedtime and Effexor XR in the morning - Declines to be referred to [facility] program Assessment & Plan (10/18/2023 9:16 AM EST): She seems to tolerate Effexor well, she should be off duloxetine now Cont Effexor 150mg /day Declined to see a provider Counseled to increase outdoor exercise, wear a mask Assessment & Plan (07/05/2023 12:15 PM EDT): Pt feels safe at home, she does not have SI or HI. Cont Effexor 150 mg and fu with me 2 month TV We discussed about possibility of moving back to [place] with her siblings. Assessment & Plan (04/12/2023 1:41 PM EDT): Off Effexor, tolerates low dose Cymbalta. Increase Cymbalta gradually to 120mg as above. Continue gabapentin for anxiety Declined referral FU in Assessment & Plan (03/08/2023 2:25 PM EDT): Unchanged. Stopped going to psychotherapy, doesn't want a new referral. DC Effexor due to not significant improvement. Start Duloxetine 30mg bid (cross taper) and fu w me in 4-6w. She feels safe at home and is able to contract for safety Essential hypertension 11/07/2016 Assessment & Plan (10/27/2024 4:57 PM EST): Borderline controlled. Continue lisinopril/hydrochlorothiazide Check BP at home 3 times a week. Call back if BP is over 140/90 FU in 2 months. Assessment & Plan (05/27/2024 3:36 PM EDT): Reportedly controlled at home, ro white coat HTN? Continue lisinopril/hctz same dose Counseled re low salt diet/increase moderate physical activity. Check home BP BIW and prn CP/FONG/FORD Non smoking patient. FU in 3-4m Assessment & Plan (12/17/2023 12:31 PM EDT): - BP at goal - Controlled. Compliant w/meds - Continue lisinopril/hctz same dose - Counseled re low salt diet/increase moderate physical activity. - Check home BP BIW and prn CP/FONG/FORD - Non smoking patient. - Will f/u next visit with labs Assessment & Plan (11/11/2023 7:21 PM EST): -pt states home BP never above 140/90 Pt to bring home BP readings and monitor in 6 weeks Assessment & Plan (03/08/2023 2:13 PM EDT): Uncontrolled. Compliant w/meds, needs to use CPAP as well. Continue lisinopril + hctz same dose. BMP up to date Counseled re low salt diet/increase moderate physical activity. Check home BP BIW and prn CP/FONG/FORD Non smoking patient. FU in 6w Fibromyalgia 11/07/2016 Assessment & Plan (10/18/2023 9:16 AM EST): Recommended to continue management of depression, avoid triggers including being exposed to extreme cold weather, remain active Continue tylenol and flexeril PRN + Effexor She declined to see psychotherapist or [facility] program FU 2 m Assessment & Plan (04/12/2023 1:43 PM EDT): Tolerates Cymbalta low dose. Increase to 90m/d (she has 30mg tabs) for 1 mo then increase to 120mg/d (single dose or split). Rx sent to pharmacy today. Use tylenol or flexeril prn exacerbation pain. Can use diclofenac gel prn , avoid being sedentary, come to walk in acupuncture clinic, rx depression. Will check with insurance and home care program re providing appropriate assistance due to LBP, weakness. Patient would like to Receive services from [facility] home care agency Hyperlipidemia 11/07/2016 Overview (05/27/2024): Order lipid profile Assessment & Plan (10/27/2024 4:47 PM EST): Check lipids and LFTs. Continue Pravastatin 80 mg. Assessment & Plan (04/30/2024 7:52 PM EDT): We discussed re rx options. Recommended moderate amount of exercise and increase consumption of fruit, vegetables, fish and high fiber foods. Should decrease consumption of highly saturated fats or trans fats. Start Pravastatin 80mg/d Chronic shoulder pain 11/07/2016 Obstructive sleep apnea 11/07/2016 Overview (03/08/2023): Sleep study done on 01/23/22 at [facility] AutoCPAP 5-20 cm H20 Assessment & Plan (11/11/2023 7:17 PM EST): pt requesting CPAP supplies-requested today to red team nurse staff Assessment & Plan (07/05/2023 12:14 PM EDT): Doing well with CPAP, she uses it every night I recommended cont use to decrease morbidity and morality Assessment & Plan (04/12/2023 1:38 PM EDT): Should be on auto CPAP 5-20, rx sent Previously. Awaiting appt for CPAP mask fitting. Recommended to use it every night and prn for naps FU in Assessment & Plan (03/08/2023 2:12 PM EDT): Reports no CPAP delivered after sleep study on 2021. Order for CPAP accessories (for old machine?) faxed to [facility] on 03/15/22, patient never receive them. Will send a new rx for Auto CPAP machine (5-20 cm H20). Needs to use it every night to decrease morbidity and mortality. Fu at next appt Resolved Problems Problem Noted Date Diagnosed Date Resolved Date Amygdalolith 01/01/2023 01/01/2023 Posterior rhinorrhea 01/01/2023 023 Osteoarthritis of hip 12/10/20182022 Bronchospasm 10/17/2018 01/01/2023 Left leg pain 10/17/2018 01/01/2023 Arthralgia of both lower legs 11/07/2016 01/01/2023 Encounters Date Type Department Care Team Description 11/03/[address] [facility] MEDICINE [address] [place] [address] Frandy Goel [place] Durable Medical Equipment 10/27/2024 2:00 PM EST Office Visit [facility] [address] [place] [address] Gail Garcia MD Pelvic pain (Primary Dx); Encounter for preventive health examination; Mixed hyperlipidemia; Age related osteoporosis, unspecified pathological fracture presence; Essential hypertension; Gastroesophageal reflux disease, unspecified whether esophagitis present; Adjustment insomnia; Arthritis; Chronic rhinitis; Allergic rhinitis, unspecified seasonality, unspecified trigger 10/27/2024 Travel 10/24/[address] [facility] [address], [place] [phone] Gail Garcia MD chart prep 10/16/[address] [facility] [address], [place] [phone] Gail Garcia MD Age related osteoporosis, unspecified pathological fracture presence 10/09/[address] [facility] [address], [place] [phone] Gail Garcia MD Age related osteoporosis, unspecified pathological fracture presence 10/01/[address] [facility] [address] [place] [address] Fanny Aj [place] Durable Medical Equipment 09/24/[address] [facility] [address] [place] [address] Gail Garcia MD HTN (hypertension), benign 09/22/[address] [facility] [address], [place] [phone] Gail Garcia MD 09/18/[address] [facility] [address], [place] [phone] Gail Garcia MD Nurse Triage 09/11/2024 Telephone [facility] [address], [place] [phone] Gail Garcia MD Durable Medical Equipment from Last 3 Months Immunizations Name Administration Dates Next Due Influenza injectable quadriv alent IIV4 with preservative 07/04/2018 Influenza injectable quadrivalent preservative f ree 11/07/2016 Td (adult), 5 Lf tetanus tox oid, preservative free, adsorbed 09/01/2014 Tdap 09/19/2019 Zoster, Recombinant 04/06/2021,02/03/2021 Social History Tobacco Use Types Packs/Day Years Used Date Smoking Tobacco: Former Cigarettes Passive Smoke Exposure: Past Smokeless Tobacco: Never Tobacco Cessation:Counseling Given: Not Answered Alcohol Use Standard Drinks/Week Comments Never 0 [...] not to disclose 2021 10:17 AM EDT Last Filed Vital Signs Vital Sign Reading Time Taken Comments Blood Pressure 157/90 10/27/2024 2:14 PM EST Pulse 97 10/27/2024 2:00 PM EST Temperature 37.2 ??C (98.9 ??F) 10/27/2024 2:00 PM ES T Respiratory Rate 16 10/27/2024 2:00 PM EST Oxygen Saturation 100% 10/27/2024 2:00 PM EST Inhaled Oxygen Concentration - - Weight 104 kg (229 lb 9.6 oz) 10/27/2024 2:00 PM EST Height 154.9 cm (5' 1 ) 10/27/2024 2:00 PM EST Body Mass Index 43.38 10/27/2024 2:00 PM EST Plan of Treatment Upcoming Encounters Date Type Department Care Team (Late st Contact Info) Description 12/26/2024 11:30 AM EDT Office Visit [facility] MED[facility]INE [address] [place] [address] Gail Garcia MD [address] [place] [address] 03/04/2025 11:00 AM EDT Office Visit [facility] OPTOMETRY [address] [place] [address] Sara Zayas, OD [address] [place] [address] Health Maintenance Due Date Last Done Comments CT Colonography 1955 FIT DNA/Cologuard 1955 FIT 1955 FOBT 1955 Sigmoidoscopy 1955 Alcohol/Substance Use Screening 1968 Pneumococcal Vaccine: 50+ Years (1 of 1 - PCV) 2006 RSV Patients and Patients Aged 60 years or older (1 - Risk 60-74 years 1-dose series) 2016 Dental Prophylaxis 10/02/2019 03/31/2019, 0 10/01/2018, 09/06/2017, Additional history exists Dental Oral Exam 12/18/2019 06/18/2019, 04/2019, 09/06/2017, Additional history exists Dental X-Ray: Bitewings 06/19/2020 06/18/2019 Mammogram 04/06/2024 04/06/2022 COVID-19 Vaccine ( season) 2024 07/25/2021 Influenza Vaccine (#1) 2024 07/04/2018, 2016 Depression Monitoring (PHQ-9) 06/18/2024 12/17/2023, 12/17/2023 Depression Screening 12/16/2024 12/17/2023, 12/17/19 24 SDOH Screening 02/26/2025 02/27/2024 Tobacco Screening 05/07/2025 05/07/2024 Dental X-Ray: Full Mouth 01/10/2027 01/10/2024, 12/23 Lipid Panel 03/03/2029 03/03/2024, 12/23, 09/05/2021, Additional history exists DTaP/Tdap/Td Vaccines (2 - Td or Tdap) 09/19/2029 09/19/2019, 09/01/2014 Colonoscopy 11/10/2030 11/10/2022 Colorectal Cancer Screening 11/10/2030 Zoster Vaccines Completed 04/06/2021, 02/03/2021 Hepatitis C Screening Completed 01/01/2023 HIB Vaccines Aged Out No longer eligi ble based on patient's age to complete this topic HPV Vaccines Aged Out No longer eligi ble based on patient's age to complete this topic Hepatitis A Vaccines Aged Out No long er eligible based on patient's age to complete this topic Hepatitis B Vaccines Aged Out No long er eligible based on patient's age to complete this topic IPV Vaccines Aged Out No longer eligi ble based on patient's age to complete this topic Meningococcal Vaccine Aged Out No deena teresa eligible based on patient's age to complete this topic RSV under 20 months Aged Out No longe r eligible based on patient's age to complete this topic Rotavirus Vaccines Aged Out No longer eligible based on patient's age to complete this topic Procedures Procedure Name Priority Date/Time Associated Diagnosis Comments BD DEXA AXIAL Routine 12/09/2024 11:50 AM EDT Age related osteoporosis, unspecified pathological fracture presence POCT URINALYSIS DIPSTICK Routine 10/27/2024 2:52 PM EST Pelvic pain LIPID PANEL WITH REFLEX TO DIRECT LDL Routine 03/03/2024 10:15 AM EDT Essential hypertension PANORAMIC RADIOGRAPHIC IMAGE Routine 01/10/2024 1:30 PM EDT HEPATITIS C AB W/REFL TO HCV RNA, QN, PCR Routine 01/01/2023 8:43 AM EDT HM COLONOSCOPY Routine 11/10/2022 9:16 AM EST MAMMOGRAM GENERIC Routine 04/06/2022 1:5 7 PM EDT BITEWINGS - 2 RADIOGRAPHIC IMAGES Routine 06/18/2019 12:00 AM EDT PERIODIC ORAL EVALUATION - ESTABLISHED PATIENT Routine 06/18/2019 12:00 AM EDT PROPHYLAXIS - ADULT Routine 03/31/2019 1 2:00 AM EDT from Last 3 Months or Most Recently Relevant to Health Maintenance Results * BD DEXA Axial (12/09/2024 11:50 AM EDT) Anatomical Region Laterality Modality Body Radiographic Vidhi ging 12/09/2024 11:5 0 AM EDT Narrative 12/09/2024 1:11 PM EDT ? [facility] ? [address] ?[place] [address] ? Mammography Report ? Signed ? Patient: Leong Aguiar,Ujdie A ?MR#: MM ?? [id number] ? : 1955 ?Acct:[id number] ? Age/Sex: 69 / F ?ADM Date: 12/09/24 ? Loc: HO.MAMMO ? Attending Dr: Gail Garcia MD ? Ordering Physician: Gail Garcia MD ?Results: ? Date of Service: 12/09/24 ?Follow Up: ? Procedure(s): XR DEXA axial skeleton ?? Accession Number(s): [id number] ? cc: Gail Garcia MD ? EXAMINATION: ??DXA BONE DENSITY AXIAL ? HISTORY: ??Estrogen deficiency ? TECHNIQUE: [employer] Dual energy absorptiometry (DEXA) ?? of the lumbar spine, total left hip, and femoral neck was performed. ? COMPARISON: Comparison is made with the prior examination dated ?? 04/06/2022. ? FINDINGS: ? The bone mineral density of the lumbar spine is 1.070 with a T-score of ?? -0.9, and a Z-score of -0.4. ? This represents a BMD change of 1.3% compared to the prior exam. ??This ?? is not statistically significant. ? The bone mineral density of the left total hip is 0.901 with a T-score ?? of -0.8, and a Z-score of -0.3. ? This represents a BMD change of 11.4% compared to the prior exam. ??This ?? is statistically significant. ? The bone mineral density of the left femoral neck is 0.835 with a ?? T-score of -1.5, and a Z-score of -0.6. ? This represents a BMD change of 17.9% compared to the prior exam. ? FRACTURE RISK: ?? The FRAX index suggests a ten year probability of major osteoporotic ?? fracture of 10.0%, and of hip fracture 1.2%. ? MM/XR DEXA axial skeleton ?? IMPRESSION: ?? Based on bone mineral density, and according to World Health ?? Organization (WHO) criteria, the diagnosis is consistent with ?? osteopenia. ? All bone density values are in grams per centimeter squared (g/cm2). ?? Statistically, 68% of repeat scans fall within 1 SD (+/- 0.010 g/cm2 ?? for AP spine L1-L4) and 1 SD (+/- 0.012 g/cm2 for femur total) ?? FRAX is a trademark of the [employer]'s ?? [place] for Metabolic Bone Disease, a World Health Organization (WHO) ?? Collaborating Center. ? Electronically signed by: ??Omari Barrow MD ??12/09/2024 01:08 PM EDT ?? RP ? Dictated By: ?Omari Barrow MD ? Signed By: ?<Electronically signed by Omari Barrow MD in OV> ?12/09/24 1308 ? DD/ 1150 ? TD/TT: 12/09/24 1200 ? Loan Auditor: ? Procedure Note Martha, Radha - 12/09/2024 [place] [address] [place], [place] [address] Mammography Report Signed Patient: Judie Bland [facility]#: [id number] : 6Acct:[id number] Age/Sex: 69 / FADM Date: 12/09/24 Loc: [place] Attending Dr: Gail Garcia MD Ordering Physician: Gail Garcia MDResults: Date of Service: 12/09/24Follow Up: Procedure(s): XR DEXA axial skeleton Accession Number(s): [id number] cc: Gail Garcia MD EXAMINATION: DXA BONE DENSITY AXIAL HISTORY: Estrogen deficiency TECHNIQUE: [employer] Dual energy absorptiometry (DEXA) of the lumbar spine, total left hip, and femoral neck was performed. COMPARISON: Comparison is made with the prior examination dated 04/06/2022. FINDINGS: The bone mineral density of the lumbar spine is 1.070 with a T-score of -0.9, and a Z-score of -0.4. This represents a BMD change of 1.3% compared to the prior exam. This is not statistically significant. The bone mineral density of the left total hip is 0.901 with a T-score of -0.8, and a Z-score of -0.3. This represents a BMD change of 11.4% compared to the prior exam. This is statistically significant. The bone mineral density of the left femoral neck is 0.835 with a T-score of -1.5, and a Z-score of -0.6. This represents a BMD change of 17.9% compared to the prior exam. FRACTURE RISK: The FRAX index suggests a ten year probability of major osteoporotic fracture of 10.0%, and of hip fracture 1.2%. MM/XR DEXA axial skeleton IMPRESSION: Based on bone mineral density, and according to World Health Organization (WHO) criteria, the diagnosis is consistent with osteopenia. All bone density values are in grams per centimeter squared (g/cm2). Statistically, 68% of repeat scans fall within 1 SD (+/- 0.010 g/cm2 for AP spine L1-L4) and 1 SD (+/- 0.012 g/cm2 for femur total) FRAX is a trademark of the [employer]'s [place] for Metabolic Bone Disease, a World Health Organization (WHO) Collaborating Center. Electronically signed by: Omari Barrow MD 12/09/2024 01:08 PM EDT RP Dictated By: Omari Barrow MD Signed By: <Electronically signed by Omari Barrow MD in OV> 12/09/24 1308 DD/ 1150 TD/TT: 12/09/24 1200 Loan Auditor: Gail Garcia MD IMG DXA PROCEDURES Final Result * POCT Urinalysis (10/27/2024 2:52 PM EST) Color, UA Yellow Clarity, UA Clear Glucose, UA Negative Bilirubin, UA Negative Ketones, UA Negative Spec Grav, UA 1.015 Blood, UA Negative Negative, None Detected pH, UA 6.0 Protein, UA Negative Urobilinogen, UA 0.2 Leukocytes, UA Negative Negative, Rare, Trace Nitrite, UA Negative Negative, None Detected Appearance, UA CLEAR QC Media Lot # [id number] Lot# Expiration Date Urine 10/27/2024 2:52 PM EST Gail Garcia MD POINT OF CARE TEST ENTER /EDIT ORDERABLES Final Result * (ABNORMAL) Lipid Panel with Reflex to Direct LDL (03/03/2024 10:15 AM EDT) Triglycerides 252(H) <150 mg/dL [facility] Comment:Desirable Triglyceri de: less than 150 mg/dLBorderline High Triglyceride 150-199 mg/dLHigh Triglyceride: 200-499 mg/dLVery High Triglyceride: greater than or equal to 5OO mg/dL Cholesterol 281(H) <200 mg/dL [facility] Comment:Desirable Cholestero l: less than 200 mg/dLBorderline High Cholesterol: 200-239 mg/dLHigh Cholesterol: greater than 239 mg/dL LDL Cholesterol Calculated 180(H) <100 mg/dL [facility] Comment:Desirable LDL: less than 100 mg/dLNear Optimal/Above Optimal LDL: 110- 129 mg/dLBorderline High LDL: 130-159 mg/dLHigh LDL: 160-189 mg/dLVery High LDL: greater than or equal to 190 mg/dL HDL Cholesterol 51 >40 mg/dL [facility] Comment:Desirable HDL: great er than 40 mg/dL Note: This HDL assay may give artificially low results in patients with liver disease. Blood 03/03/2024 10:1 5 AM EDT 03/03/2024 11:44 AM EDT Gail Garcia MD LAB BLOOD ORDERABLES Fin al Result Performing Organization Address City/[facility] Co de Phone Number [facility] [address] [place] [address] [phone] * Hepatitis C Antibody with Reflex to HCV, RNA, Quantitative, Real-Time PCR (01/01/2023 8:43 AM EDT) Hepatitis C Antibody NON-REACT ALVA NON-REACT ALVA I'm[facility] Index 0.27 <1.00 I'm[facility] Comment: HCV antibody was non-reactive. There is no laboratory evidence of HCV infection. In most cases, no further action is required. However, if recent HCV exposure is suspected, a test for HCV RNA (test code 95791) is suggested. For additional information please refer to http://education.allyDVM/faq/CIT74d2 (This link is being provided for informational/ educational purposes only.) 01/01/2023 8:43 AM EDT 01/01/2023 8:43 AM EDT Narrative [facility] - 01/02/2023 12:05 AM EDT FASTING:YES FASTING: YES Gail Garcia MD LAB BLOOD ORDERABLES Fin al Result [facility] [address] [place] [address], [place] [address] [facility] [address] [place] [address] * Hm Colonoscopy (11/10/2022 9:16 AM EST) Colonoscopy Normal Normal Narrative Renetta Mora - 11/10/2022 9:16 AM EST Recommended 10 year follow up ( recommended to have another colonoscopy before 75) Historical Provider HEALTH MAINTENANCE Final Result * Mammography Report 1 (04/06/2022 1:57 PM EDT) Anatomical Region Laterality Modality Breast Bilateral Mammography 04/06/2022 1:57 PM EDT Narrative 04/07/2022 7:21 AM EDT Refer to the Notes tab for result details [facility] Procedure: Mammography Report 1 Procedure Note Provider, MD Bo - 12/17/2022 Refer to the Notes tab for result details [facility] Procedure: Mammography Report 1 Gail Garcia MD IMG BI PROCEDURES Final Result from Last 3 Months or Most Recently Relevant to Health Maintenance Insurance - [facility] - [facility] Care Teams Procedure Tech Relationship Specialty Start Date End Date Gail Garcia MD [address] [place] [phone] PCP - General Family Medicine 11/03/16
--- OUTSIDE RECORDS SUMMARY | 2024-12-09 14:05 | XMS_ITS | Encounter Summary ---
Author Organization [employer] Address [address] [facility] [address] [place] [address] Care Team Providers Care Photographic Equipment Assembler Name Role Phone Gail Garcia MD Primary Care Provider + Encounter Details Date Type Department Care Team (Late st Contact Info) Description 10/20/2022 Orders Only [facility] [address] [place], [place] [phone] Dunia Ocampo LPN Social History Tobacco Use [...] Description 12/26/2024 11:30 AM EDT Office Visit [facility] MEDICINE [address] [place] [address] Gail Garcia MD [address] [place] [address] 03/04/2025 11:00 AM EDT Office Visit [facility] OPTOMETRY [address] [place] [address] Sara Zayas, OD [address] [place] [address] documented as of this encounter Visit Diagnoses Not on filedocumented in this encounter Care Teams Photographic Equipment Assembler Relationship Specialty Start Date End Date Gail Garcia MD [address] [place] [address] PCP - General Family Medicine 11/03/16 documented as of this encounter
--- OUTSIDE RECORDS SUMMARY | 2024-12-09 14:05 | XMS_ITS | Encounter Summary ---
Author Organization [employer] Address [address] [facility] [address] [place] [address] Care Team Providers Care Java Development Team Lead Name Role Phone Gail Garcia MD Primary Care Provider + Reason for Visit * Reason Comments Med Refill Encounter Details Date Type Department Care Team (Late st Contact Info) Description 02/15/2023 Refill [facility] DIABETES/NUTRITION [address] [place], [place] [phone] Gail Garcia MD [address] [place], [place] [phone] Social History Tobacco Use Types Packs/Day Years Used Date Smoking Tobacco: Former Cigarettes Passive Smoke Exposure: Past Smokeless Tobacco: Never Alcohol Use Standard Drinks/Week Comments Never 0 (1 standard drink = 0.6 oz pur e alcohol) Comments Unknown Sex and Gender Information Value [...] Description 12/26/2024 11:30 AM EDT Office Visit [facility] MEDICINE [address] [place], [place] [phone] Gail Garcia MD [address] [place], [place] [phone] 03/04/2025 11:00 AM EDT Office Visit [facility] OPTOMETRY [address] [place], [place] [phone] Sara Zayas, OD [address] [place] [address] documented as of this encounter Visit Diagnoses Not on filedocumented in this encounter Care Teams Java Development Team Lead Relationship Specialty Start Date End Date Gail Garcia MD [address] [place], [place] [phone] PCP - General Family Medicine 11/03/16 documented as of this encounter
== END 2024-12-09 11:33 | disposition home or self-care (01) ==
LOC: HO.MAMMO 11:32
PROVIDERS: PCP Internal Medicine; Visit Provider Internal Medicine
DX: M81.0 Age-related osteoporosis without current pathological fracture (principal)
CPT/HCPCS: 77080

== ENCOUNTER 2024-12-19 12:55 | Outpatient (REF) | payer OTHER, SELFPAY | END 2024-12-19 12:56 | disposition home or self-care (01) | LOC: HO.HHCL 12:55 | PROVIDERS: Visit Provider Internal Medicine | DX: E78.2 Mixed hyperlipidemia (principal) | CPT/HCPCS: 36415; 80061; 80076 ==

== ENCOUNTER 2024-12-23 10:57 | Outpatient (REF) | payer OTHER, SELFPAY ==
--- OUTSIDE RECORDS SUMMARY | 2024-12-23 13:13 | XMS_ITS | Data Portability ---
Author Organization [employer] Address [address] [place] [phone] Assessment No assessment recorded. Plan of Treatment [...] Name and Address Organization Details Recorded Time 74153 aspirin medicatio n Not available Not available Not available 09/18/2024 1191 RxNorm Not Available [employer] - production 14:05:30 64894 Product containin g penicilli n (product) medicatio n Not available Not available Not available 09/18/2024 95428 8001 SNOMED Not Available [employer] - production 14:05:30 Medications Name Sig Start [...] Address Organization Details Last Updated DateTime 4 09792.4 g 94 /min 16 /min 96 % [...] SNOMED-CT Code Diagnosis ICD10 Code Diagnosis Note [id number] Izzy Garcia MD Main - [facility] [address] [place] [phone] 09/19/2024 10:17:19 09/19/2024 12:38:58 Upper respiratory infection [id number] J06.9 Evaluation in the field was performed by my shoe shanker colleague, as noted above, I provided real-time direction and supervisio n for this visit. 69yo F endorsing 2 week of nasal congestion , cough. Denies fevers, myalgias, malaise, chest pain, other new symptoms. On shoe shanker eval VS wnl (afebrile) , lungs CTA [...] Eastman Member ID Guarantor Name 09/19/2024 1 [facility] - DOS ON OR AFTER 2022 - DUAL ELIGIBLE - SENIOR LIVING OPTIONS AND ONE CARE (MEDICARE REPLACEMENT/ADV ANTAGE - HMO) Judie Aguiar [id number] Judie Aguiar Notes Date Note Type Note [...] .................. .................. .................. .................. .................. .................. ............... Supervisor Conditioning Yard Note From Garrett Rowe: Pt co cough with clear production. Pt sts she has had the cough for 2-3 weeks. Pt denies NC, Sore throat, runny nose, fever, NVD, headaches dizziness,SOB, CP or abdominal pain. Pt taking OTC cough syrup with relief. Baseline vitals assessed, WNL, Lungs clear bilaterally, Afebrile, good skin color and turgor. [facility] [place] and advised pt to continue with self care and OTC meds for cough. Pt advised if symptoms persist to contact PCP for X-rays. Pt education on signs indicating the ER. .................. .................. .................. .................. .................. .................. .................. ............... [facility] Consulted: Izzy Garcia .................. .................. .................. .................. .................. .................. .................. ............... Disposition: Fulfilled Izzy Garcia MD [address] [facility] [facility], [place], [phone], [employer] - SUKH WARD 09/19/2024 10:53:07 OBGyn Episode No OBEpisode recorded.
[2024-12-23 14:20] LABS: Alanine Aminotransferase 21 U/L (0-31); Alkaline Phosphatase 49 U/L (39-117); Aspartate Amino Transferase 34 U/L (5-31); Bilirubin Direct 0.2 mg/dL (0.0-0.5); Bilirubin Total 0.6 mg/dL (0.0-1.0); Cholesterol 256 mg/dL (<200); HDL Cholesterol 62 mg/dL (>40); LDL Cholesterol Calculated 163 mg/dL (<100); Total Protein 7.4 g/dL (6.5-8.0); Triglycerides 155 mg/dL (<150)
[2024-12-23 20:19] LABS: Reflex LDLD? No
== END 2024-12-23 10:58 | disposition home or self-care (01) ==
LOC: HO.HHCL 10:57
PROVIDERS: Visit Provider Internal Medicine
DX: E78.2 Mixed hyperlipidemia (principal)
CPT/HCPCS: 36415; 80061; 80076

== ENCOUNTER 2025-03-16 10:14 | Outpatient (REF) | payer OTHER, SELFPAY ==
--- OUTSIDE RECORDS SUMMARY | 2025-03-16 11:21 | XMS_ITS | Data Portability ---
Author Organization [facility] [employer] [facility], [facility] Address [address] [place] [phone] Assessment No assessment recorded. Plan of Treatment [...] Name and Address Organization Details Recorded Time 04060 aspirin medicatio n Not available Not available Not available 09/18/2024 1191 RxNorm Not Available [employer] - production 14:05:30 70327 Product containin g penicilli n (product) medicatio n Not available Not available Not available 09/18/2024 72196 8001 SNOMED Not Available [employer] - production 14:05:30 Medications Name Sig Start [...] Address Organization Details Last Updated DateTime 4 64069.4 g 94 /min 16 /min 96 % [...] SNOMED-CT Code Diagnosis ICD10 Code Diagnosis Note [id number] Izzy Garcia MD Main - [facility] [address] [place] [phone] 09/19/2024 10:17:19 09/19/2024 12:38:58 Upper respiratory infection [id number] J06.9 Evaluation in the field was performed by my signals officer colleague, as noted above, I provided real-time direction and supervisio n for this visit. 69yo F endorsing 2 week of nasal congestion , cough. Denies fevers, myalgias, malaise, chest pain, other new symptoms. On signals officer eval VS wnl (afebrile) , lungs CTA [...] Recorded Advance Directives Directive None Recorded Payers Insurance Date Sequence Insurance Name Policy Number Policy Eastman Covered Member ID Eastman Member ID Guarantor Name 09/28/2024 1 [facility] - DOS ON OR AFTER 2022 - DUAL ELIGIBLE - [facility] OPTIONS AND ONE CARE (MEDICARE REPLACEMENT/ADV ANTAGE - HMO) Judie Handleyto [id number] Judie Jmaes Salo Aguiar Notes Date Note Type Note Provider [...] .................. .................. .................. .................. .................. .................. ............... [employer] Tech Note From Garrett Rowe: Pt co cough with clear production. Pt sts she has had the cough for 2-3 weeks. Pt denies NC, Sore throat, runny nose, fever, NVD, headaches dizziness,SOB, CP or abdominal pain. Pt taking OTC cough syrup with relief. Baseline vitals assessed, WNL, Lungs clear bilaterally, Afebrile, good skin color and turgor. [facility] contacted and advised pt to continue with self care and OTC meds for cough. Pt advised if symptoms persist to contact PCP for X-rays. Pt education on signs indicating the ER. .................. .................. .................. .................. .................. .................. .................. ............... [facility] Consulted: Izzy Garcia .................. .................. .................. .................. .................. .................. .................. ............... Disposition: Fulfilled Izzy Garcia MD [address] [facility],[address], [place], [phone], [employer] [facility] 09/19/2024 10:53:07 OBGyn Episode No OBEpisode recorded.
[2025-03-16 11:41] LABS: Alanine Aminotransferase 20 U/L (0-31); Albumin Level 4.3 g/dL (3.5-5.0); Alkaline Phosphatase 48 U/L (39-117); Aspartate Amino Transferase 25 U/L (5-31); Bilirubin Direct 0.2 mg/dL (0.0-0.5); Bilirubin Total 0.5 mg/dL (0.0-1.0); Cholesterol 163 mg/dL (<200); HDL Cholesterol 64 mg/dL (>40); LDL Cholesterol Calculated 71 mg/dL (<100); Total Protein 7.2 g/dL (6.5-8.0); Triglycerides 144 mg/dL (<150)
[2025-03-16 13:39] LABS: Reflex LDLD? No
== END 2025-03-16 10:15 | disposition home or self-care (01) ==
LOC: HO.HHCL 10:14
PROVIDERS: PCP Internal Medicine; Visit Provider Internal Medicine
DX: M85.88 Other specified disorders of bone density and structure, other site (principal); E78.2 Mixed hyperlipidemia
CPT/HCPCS: 36415; 80061; 80076; 82306